=== PATIENT | male | born 1970 | race Caucasian/White ===

== ENCOUNTER → 2016-07-01 | Outpatient (CLI) | payer BC ==
[2016-07-01 08:46] LABS: BASOPHILS % (AUTO) 1 % (0-2); EOSINOPHILS # (AUTO) 0.1 10^3uL; EOSINOPHILS % (AUTO) 2 % (0-4); LYMPHOCYTES # (AUTO) 1.5 X10^3; MEAN CORPUSCULAR HEMOGLOBIN 31.1 PG (26.0-34.0); MEAN CORPUSCULAR HGB CONC 33.6 g/dL (31.0-37.0); MEAN CORPUSCULAR VOLUME 93 FL (80-100); MEAN PLATELET VOLUME 10.4 FL (6.0-9.5); MONOCYTES # (AUTO) 0.6 X10^3; MONOCYTES % (AUTO) 10 % (3-11); NEUTROPHILS # (AUTO) 3.7 X10^3; NEUTROPHILS % (AUTO) 62 % (51-67); PLATELET COUNT 351 10^3uL (150-450); WHITE BLOOD COUNT 6.01 10^3uL (4.0-11.0)
[2016-07-01 09:29] LABS: ERYTHROCYTE SEDIMENTATION RT* 56 mm/hr (0-12)
[2016-07-02 08:18] LABS: Factor V Leiden Mutation Negative (Negative)
[2016-07-04 13:52] LABS: CARDIOLIPIN IGG ANTIBODY 17.9 GPL; CARDIOLIPIN IGM ANTIBODY <9.4 MPL
[2016-07-06 10:51] LABS: PROTEIN C FUNCTIONAL ASSAY 93 % (70-150)
== END ==
LOC: LAB 07:44
PROVIDERS: ATTEND Internal Medicine
DX: M45.0 Ankylosing spondylitis of multiple sites in spine (principal); I82.812 Embolism and thrombosis of superficial veins of left lower extremity
CPT/HCPCS: 36415; 81241; 85025; 85303; 85306; 85652; 86140; 86147

== ENCOUNTER → 2016-07-08 | Outpatient (CLI) | payer BC | LOC: RAD 11:00 | PROVIDERS: ATTEND Internal Medicine Gastroenterology | DX: R10.12 Left upper quadrant pain (principal); K57.30 Diverticulosis of large intestine without perforation or abscess without bleeding | CPT/HCPCS: 74178; Q9967 ==

== ENCOUNTER → 2016-07-23 | Outpatient (CLI) | payer BC ==
[~2016-07-23] MED LIST: AC325T PO; ACET1TAB43 PO; CYCL10TA45 PO; DABI150C PO; ETAN50PE SQ; OMEP20CA12 PO; OMEP40CA36 PO; ONDAN4ODT PO; SUCR1TAB29 PO; TRM50T PO
--- NOTE | 2016-07-23 13:29 | Diagnostic Imaging Report ---
INDICATION: Thrombophlebitis, chest pain. FINDINGS: Since the study of 12/04/2015, mid thoracic posterior fusion has been performed with no fracture of the pedicular screws or vertical rods. Lungs themselves are clear. The heart size is stable. No vascular congestion. No edema, pneumonia, effusion, or pneumothorax. IMPRESSION: Interval posterior spinal fusion, no acute abnormality. Dictated by: Dictated on workstation # [id number]
== END ==
LOC: LAB 09:19
PROVIDERS: ATTEND Internal Medicine
DX: J98.11 Atelectasis (principal)
CPT/HCPCS: 71020